=== PATIENT | female | born 1960 | race African-American/Black ===

== ENCOUNTER 2017-07-23 15:39 | Inpatient (IN) | payer OTHER, MEDICAID ==
[~2017-07-23] VITALS: Ht 175.3 cm; Wt 80.7 kg
[~2017-07-23 15:39] MED LIST: BENZ1TAB PO; CITA-70 PO; CLON0.3T41 PO; DIVA500E1 PO; FURO-571 PO; HYDR100T65 PO; LABE300T5 PO; NIFE60TE79 PO; RISP3TAB3 PO; SEVE800T6 PO; TRAZ-286 PO; [UNRECOGNIZED DRUG - CODE] PO
[2017-07-23 15:46] VITALS: BP 159/83
--- NOTE | 2017-07-23 15:46 | NUR ---
Patient to bed 12 by EMS at this time.
--- NOTE | 2017-07-23 15:59 | NUR ---
57 YO FEMALE BIB EMS FROM THE FIELD FOR FEELING TIRED AND HOT. PT REPORTS LOW BACK PAIN THAT IS CHRONIC X YEARS. FEELS 10/10 PAIN OVER HER ENTIRE BODY. DENIES N/V/D/FEVER/CHILLS. ABD SOFT, NON-TENDER. RR EVEN AND UNLABORED. LUNGS BILATERALLY CLEAR. PT BREATHING IS UNLABORED, BUT WHEN SHE BEGINS SPEAKING, SHE GETS VERY ENTHUSIASTIC AND THE EXERTION MAKES HER SOB. WHILE SPEAKING PT O2 SAT WENT TO MID 70%S, PT PLACED ON 3 L/MIN O2 VIA NC, AND O2 SAT WENT UP TO 99%. PT NOT IN ANY RESPIRATORY DISTRESS AT THIS TIME. ER MD SABILLON NOTIFIED. PT NEEDS MET. SAFETY PRECAUTIONS IN PLACE. WILL CONTINUE TO MONITOR.
[2017-07-23] MEDS ORDERED: LORazepam 2 MG/ML VIAL IM ONE ×2 (16:50→17:05)
[2017-07-23] MEDS ORDERED: diphenhydrAMINE 50 MG/ML VIAL IM ONE (16:50)
[2017-07-23] MEDS ORDERED: diphenhydrAMINE 50 MG/ML VIAL ONE (16:55)
[2017-07-23] MEDS ORDERED: LORazepam 2 MG/ML VIAL ONE (16:56)
--- NOTE | 2017-07-23 17:00 | NUR ---
ONLY 2 MG OF ATIVAN GIVEN AT THIS TIME. ER MD GONZALEZ NOTIFIED. TOLD TO OBSERVE AND DETERMINE IF 2 MORE MG NEEDED IN ADDITION. UNSURE IF DOCUMENTATION OF 2MG INSTEAD OF 4MG WAS CORRECT IN THE EMAR. WILL CONTINUE TO MONITOR.
--- NOTE | 2017-07-23 17:10 | NUR ---
PT REFUSING XRAY AT THIS TIME.
--- NOTE | 2017-07-23 17:25 | NUR ---
PT REFUSING CT SCAN AT THIS TIME. PT EDUCATED ON IMPORTANCE OF RECEIVING HER XRAY AND SCANS, BUT STILL DENIES. WILL RE-TRY AND CONTINUE TO MONITOR.
--- NOTE | 2017-07-23 17:31 | NUR ---
PT REFUSING IV INSERTION. PT REFUSING TO GIVE URINE. PT REFUSES ANY STRAIGHT CATHETERIZATION. PT EDUCATED ON IMPORTANCE OF DIAGNOSTIC TOOLS. WILL CONTINUE TO RE-TRY. WILL CONTIUE TO MONITOR. ER MD GONZALEZ NOTIFIED.
--- NOTE | 2017-07-23 17:42 | NUR ---
PT RESTING COMFORTABLY [facility] AT THIS TIME. PT STILL REFUSING ANY SCANS/PROCEDURES. ER MD NOTIFIED. WILL CONTINUE TO MONITOR.
--- NOTE | 2017-07-23 18:50 | NUR ---
pt still refusing all txs/procedures at this time. er md duenas notified. safety precautions remain in place. will continue to monitor.
--- NOTE | 2017-07-23 19:41 | NUR ---
REPORT RECEVIED FROM CORTEZ KURTZ
--- NOTE | 2017-07-23 19:41 | NUR ---
report given to JERARDO Tolbert and Andreea RN
--- NOTE | 2017-07-23 20:28 | NUR ---
PATIENT ASLEEP ON STRETCHER IN NO ACUTE DISTRESS AWAITING DISPO FROM ED PHYSICIAN. WILL CONTINUE TO MONITOR CLOSELY.
--- NOTE | 2017-07-23 22:20 | NUR ---
PATIENT FOUND DEFECATING ON FLOOR, REDIRECTED TO STRETCHER AND PHYSICIAN MADE AWARE.
--- NOTE | 2017-07-23 23:28 | NUR ---
Dr. Azevedo evaluating patient at bedside.
--- NOTE | 2017-07-23 23:34 | NUR ---
PT MOVED TO BED 1
--- NOTE | 2017-07-24 | NUR ---
PATIENT RESTING AT THIS TIME. NO SIGNS OF DISTRESS.
--- NOTE | 2017-07-24 00:02 | NUR ---
PATIENT REFUSING TO GIVE URINE AT THIS TIME. DR. PRESTON MADE AWARE.
[2017-07-24 00:09] LABS: BASOPHILS % (AUTO) 0.4 % (0.0-2.0); EOSINOPHILS # (AUTO) 0.3 K/uL (0-0.4); EOSINOPHILS % (AUTO) 3.2 % (0.0-4.0); LYMPHOCYTES # (AUTO) 1.7 K/uL (2.5-16.5); LYMPHOCYTES % (AUTO) 17.1 % (20.5-51.1); MONOCYTES # (AUTO) 0.7 K/uL (0.8-1.0); MONOCYTES % (AUTO) 6.8 % (1.7-9.3); NEUTROPHILS # (AUTO) 7.2 K/uL (1.8-7.7); NEUTROPHILS % (AUTO) 72.5 % (42.2-75.2); RED BLOOD CELL COUNT(AUTO) 2.99 MIL/uL (4.20-5.40)
[2017-07-24 00:21] LABS: HEMATOCRIT 24.8 % (36-48); HEMOGLOBIN 7.9 g/dL (12.0-16.0); MEAN CORPUSCULAR HEMOGLOBIN 26 pg (27-31); MEAN CORPUSCULAR HGB CONC 32 g/dL (33-37); MEAN CORPUSCULAR VOLUME 82.7 fL (80-94); PLATELET COUNT (AUTO) 188 K/uL (140-450); RED CELL DISTRIBUTION WIDTH 15.5 % (11.6-13.7)
[2017-07-24 00:26] LABS: ALBUMIN 3.2 g/dL (3.4-5.0); ANION GAP 17.3 (8-16); ASPARTATE AMINOTRANSFERASE 31 U/L (15-37); CARBON DIOXIDE 28.9 mmol/L (21-32); CHLORIDE 95 mmol/L (98-107); GFR ARICAN-AMERICAN 5 mL/min (>90); GLUCOSE 97 mg/dL (74-106); POTASSIUM 5.2 mmol/L (3.5-5.1); SODIUM SERUM 136 mmol/L (136-145); TOTAL BILIRUBIN 0.6 mg/dL (0.0-1.0)
--- NOTE | 2017-07-24 00:35 | NUR ---
PATIENT REFUSING STRAIGHT CATH
[2017-07-24 00:48] LABS: CREATININE 10.7 mg/dL (0.6-1.3); SALICYLATE < 2.8 mg/dL (2.8-20.0); UREA NITROGEN, BLOOD 94 mg/dL (7-18)
[2017-07-24 00:49] LABS: ACETAMINOPHEN < 0.5 ug/ml (10-30)
[2017-07-24 00:52] LABS: CKMB RELATIVE INDEX 1.7 (0.0-2.5)
--- NOTE | 2017-07-24 01:00 | NUR ---
PATIENT PLACED ON FULL MONITOR BUT CONTINUES TO RIP OFF LEADS AND PULSE OX. ATTEMPTED TO REPLACE X2. PROVIDER NOTIFIED.
[2017-07-24] MEDS ORDERED: LORazepam 1 MG TAB PO ONE (01:05)
--- NOTE | 2017-07-24 01:37 | NUR ---
Dr. Smith evaluating patient
[2017-07-24] MEDS ORDERED: NACL 0.9% 1,000 ML IV SCH (01:54)
[2017-07-24] MEDS ORDERED: ZOLPIDEM 5 MG TAB PO PRN (01:55)
[2017-07-24] MEDS ORDERED: DOCUSATE SODIUM 100 MG GELCAP PO PRN (01:55)
[2017-07-24] MEDS ORDERED: ACETAMINOPHEN 325 MG TAB PO PRN (01:55)
[2017-07-24] MEDS ORDERED: FUROSEMIDE 40 MG/4 ML VIAL IVP ONE ×2 (02:00→05:04)
--- NOTE | 2017-07-24 02:03 | NUR ---
ATTEMPTED IV TIMES 3, PATIENT YANKED AWAY EACH TIME TRYING TO HIT RN'S. PROVIDER MADE AWARE.
[2017-07-24] MEDS ORDERED: HALOPERIDOL IM 5 MG/ML VIAL IM ONE (02:05)
[2017-07-24] MEDS ORDERED: hydrALAZINE 20 MG/ML VIAL IM ONE (02:05)
[2017-07-24] MEDS ORDERED: diphenhydrAMINE 50 MG/ML VIAL IM ONE (02:05)
--- NOTE | 2017-07-24 02:15 | NUR ---
EKG NOT FOUND IN PT CHART OR CARDIOSERVER. DR. PRESTON ORDERED REPEAT.
[2017-07-24 02:18] LABS: PROTHROMBIN TIME 11.8 secs (10.8-13.4)
--- NOTE | 2017-07-24 02:30 | NUR ---
AWAITING PT TO BECOME CALM FOR REPEAT EKG, IV INSERTION. ICU MADE AWARE.
[2017-07-24 02:40] LABS: FREE T4 (FREE THYROXINE) 1.04 ng/dL (0.76-1.46); MAGNESIUM 2.2 mg/dL (1.8-2.4); PHOSPHORUS 7.6 mg/dL (2.5-4.9); THYROID STIMULATING HORMONE 0.86 uIU/mL (0.34-3.74)
[2017-07-24] MEDS ORDERED: HEPARIN PER PHARMACY MC PRN (03:05)
[2017-07-24] MEDS ORDERED: hePARIN / DEXT 5% PREMIX 250 ML IV SCH ×2 (03:05→04:00)
--- NOTE | 2017-07-24 03:35 | NUR ---
Patient will be admitted to care of [facility]. Admited to ICU FOR TELE CONVENIENCE. Will go to roo[facility] ICU 3. Belongings list completed. Report to ALISA KURTZ.
--- NOTE | 2017-07-24 03:40 | NUR ---
PT ARRIVED IN THE UNIT AT 0330. PT DROWSY. ORIENTED TO NAME. PT TALKS BUT GARBLED. PERRL. LUNG SOUNDS CLEAR. PT IN ROOM AIR BUT PUT ON 2L OXYGEN VIA NC DUE TO DESATURATING. S1+S2 HEARD. SR ON MONITOR. PULSES PALPABLE. PT HAS LEFT ARM FISTULA. ABDOMEN ROUND, SOFT AND NONDISTENDED. NO URINE OUTPUT AT THIS TIME. PT UNCOOPERATIVE TOWARDS STAFF. REFUSES FOR LINENS TO BE CHANGED AND REMOVED. PT HAS RIGHT EJ PERIPHERAL IV ACCESS THAT IS PATENT AND ASYMPTOMATIC. ALL SAFETY PRECAUTIONS ARE IN PLACE. BED AT LOW POSSIBLE POSITION. WILL CONTINUE TO MONITOR PT.
[2017-07-24 04:00] VITALS: BP 205/125
--- NOTE | 2017-07-24 04:31 | NUR ---
PT REFUSES FOR LEADS TO BE FIXED. CURRENTLY SHOWS NO RHYTHM ON MONITOR. PT EDUCATED AND STILL REFUSES. GETTING AGGRESSIVE TOWARDS NURSES.
--- NOTE | 2017-07-24 04:42 | NUR ---
CALLED DR. FERRIS TO CLARIFY HEPARIN BOLUS ORDER. ACCORDING TO HIM JUST GIVE PT 4,000 UNITS BOLUS.
--- NOTE | 2017-07-24 04:50 | NUR ---
PT REFUSING TO HAVE IV HEPARIN OR ANY IV FLUIDS TO BE STARTED. DR FERRIS NOTIFIED REGARDING THIS.
--- NOTE | 2017-07-24 04:55 | NUR ---
INFORMED DR. FERRIS REGARDING ELEVATED BP. WILL FOLLOW UP WITH ANY NEW ORDERS.
[2017-07-24] MEDS ORDERED: hydrALAZINE 20 MG/ML VIAL IVP SCH (06:00)
--- NOTE | 2017-07-24 06:00 | NUR ---
PT STARTED ON HEPARIN DRIP PER ORDER. DR GIMENEZ AT BEDSIDE AND INFORMED REGARDING PTT ORDER.
--- NOTE | 2017-07-24 07:18 | NUR ---
REPORT GIVEN TO MORNING RN FOR CONTINUITY OF CARE. INFORMED RN REGARDING PT'S DENTURES. PT IN STABLE CONDITION AT THIS TIME.
--- NOTE | 2017-07-24 07:19 | NUR ---
RECEIVED REPORT FROM NUCLEAR MEDICINE SUPERVISOR RN AT BEDSIDE, PT IS AAOX2, AGITATED, ABLE FOLLOW COMMANDS AND MAKE NEEDS KNOWN. SOBOE NOTED, RHONCHI LUNG SOUNDS, ON O2 AT 2L VIA NC, O2 SAT 93%, DENIES CHEST PAIN, SR ON BUFFING WHEEL FORMER AUTOMATIC, SOFT ABDOMEN WITH ACTIVE BOWEL SOUNDS, OH HD ON TTS, AV SHUNT TO LEFT FOREARM, CONTINENT WITH B&B'S, GENERALIZED WEAKNESS NOTED, RIGHT FOOT +2 PITTING EDEMA NOTED, SKIN IS INTACT, WARM AND DRY TO TOUCH, IV TO RIGHT ET 18GA, RUNNING HEPARIN DRIP AT 800 UNITS/HR. DENIES PAIN, ELEVATED BP NOTED, HOB ELEVATED, SAFETY MEASURE IN PLACE, WILL CONTINUE TO MONITOR.
--- NOTE | 2017-07-24 07:50 | NUR ---
TRANSFERRED PT TO ROOM 119B VIA GURNEY, REPORT GIVEN TO MICHELLE RN AT BEDSIDE FOR CONTINUE OF CARE, PT IS IN STABLE CONDITION AT THIS TIME.
--- NOTE | 2017-07-24 07:50 | NUR ---
PT ARRIVED IN THE UNIT FROM ICU. PT IS AWAKE, BUT A LITTLE DROWSY. LUNG SOUNDS CLEAR. PT ON 2L OXYGEN VIA NC. PLACED PT ON TELE MONITOR. PT HAS LEFT ARM AV FISTULA. THRMARJ AND BRUJAYE PRESENTED. IV CATH TO THE RIGHT EJ, PATENT AND ASYMPTOMATIC. ALL SAFETY PRECAUTIONS ARE IN PLACE. BED AT LOW POSSIBLE POSITION. WILL CONTINUE TO MONITOR PT. Addendum: 07/24/17 at 1902 by Sina Dowling RN CALL LIGHT WITHIN REACH.
[2017-07-24 08:00] VITALS: BP 208/115
[2017-07-24] MEDS ORDERED: cloNIDine 0.1 MG TAB PO SCH (08:35)
[2017-07-24] MEDS: NACL 0.9% 250 ML IV SCH (08:41)
[2017-07-24] MEDS: SEVELAMER CARBONATE 800 MG TAB PO SCH ×3 (08:50→18:04)
[2017-07-24] MEDS: risperiDONE 1 MG TAB PO SCH (08:50)
[2017-07-24] MEDS: LABETALOL 100 MG TAB PO SCH ×2 (08:51→20:47)
[2017-07-24] MEDS: DIVALPROEX 500 MG TABEC PO SCH ×2 (08:52→20:49)
[2017-07-24] MEDS: NIFEdipine 60 MG TABER PO SCH ×2 (08:52→20:49)
[2017-07-24] MEDS: MINOXIDIL 2.5 MG TAB PO SCH (08:52)
[2017-07-24] MEDS: hydrALAZINE 25 MG TAB PO SCH ×5 (08:52→18:04)
[2017-07-24] MEDS: BENZTROPINE 1 MG TAB PO SCH (08:53)
[2017-07-24] MEDS: CITALOPRAM 20 MG TAB PO SCH (08:53)
[2017-07-24] MEDS: cloNIDine 0.1 MG TAB PO SCH ×2 (09:00→20:48)
[2017-07-24] MEDS: FUROSEMIDE 40 MG/4 ML VIAL IVP SCH ×3 (09:03→18:04)
--- NOTE | 2017-07-24 09:20 | NUR ---
PT IS DROWSY, NOT SWALLOWING ANY MORE MEDICATION.
[2017-07-24 10:15] VITALS: BP 156/82
--- NOTE | 2017-07-24 10:18 | NUR ---
BP 156/82, HR 78
--- NOTE | 2017-07-24 10:27 | NUR ---
PATIENT HAS BEEN SCREENED AND CATEGORIZED MODERATE NUTRITION RISK. PATIENT WILL BE SEEN WITHIN 3-5 DAYS OF ADMISSION. 07/26/17 07/28/[address]
[2017-07-24 12:00] VITALS: BP 157/87
[2017-07-24 12:38] LABS: BASOPHILS % (AUTO) 0.6 % (0.0-2.0); EOSINOPHILS # (AUTO) 0.3 K/uL (0-0.4); EOSINOPHILS % (AUTO) 3.3 % (0.0-4.0); HEMATOCRIT 22.1 % (36-48); HEMOGLOBIN 7.1 g/dL (12.0-16.0); LYMPHOCYTES # (AUTO) 1.7 K/uL (2.5-16.5); LYMPHOCYTES % (AUTO) 19.8 % (20.5-51.1); MEAN CORPUSCULAR HEMOGLOBIN 26 pg (27-31); MEAN CORPUSCULAR HGB CONC 32 g/dL (33-37); MEAN CORPUSCULAR VOLUME 82.3 fL (80-94); MONOCYTES # (AUTO) 0.7 K/uL (0.8-1.0); NEUTROPHILS # (AUTO) 5.7 K/uL (1.8-7.7); NEUTROPHILS % (AUTO) 68.3 % (42.2-75.2); PLATELET COUNT (AUTO) 154 K/uL (140-450); RED BLOOD CELL COUNT(AUTO) 2.69 MIL/uL (4.20-5.40); RED CELL DISTRIBUTION WIDTH 15.2 % (11.6-13.7); WHITE BLOOD COUNT (AUTO) 8.3 K/uL (4.8-10.8)
[2017-07-24 13:19] LABS: ANION GAP 17.8 (8-16); CARBON DIOXIDE 27.9 mmol/L (21-32); POTASSIUM 5.7 mmol/L (3.5-5.1)
[2017-07-24 13:23] LABS: CREATININE 11.2 mg/dL (0.6-1.3)
[2017-07-24 13:24] LABS: MAGNESIUM 2.2 mg/dL (1.8-2.4); PHOSPHORUS 7.9 mg/dL (2.5-4.9)
--- NOTE | 2017-07-24 13:30 | NUR ---
PT REFUSED KIRBY CATH INSERT, WILL TRY AGAIN LATER. PT AGREED TO X RAY CHEST. NOTIFIED RADIOLOGY DEPT.
--- NOTE | 2017-07-24 13:45 | NUR ---
PT REFUSING KIRBY CATH, MADE PT AWARE OF THE RISK AND BENEFITS, PT STILL REFUSING. NOTIFIED DR WELLINGTON WHO SAID MIGHT ORDER US.
--- NOTE | 2017-07-24 13:47 | NUR ---
NOTIFIED DIALYSIS NURSE AFIA, WHO CALLED NUSRAT ABOUT THE DR CRAVEN'S ORDER FOR HEMODIALYSIS TODAY,
[2017-07-24] MEDS: FERROUS GLUCONATE 324 MG TAB PO SCH (13:50)
--- NOTE | 2017-07-24 14:25 | NUR ---
DIALYSIS NURSE NUSRAT IS HERE, WILL START DIALYSIS FOR PT.
[2017-07-24 16:00] VITALS: BP 142/79
--- NOTE | 2017-07-24 18:00 | NUR ---
DIALYSIS DONE, 3L REMOVED. VITALS STABLE. PT STARTED EATING DINNER.
--- NOTE | 2017-07-24 18:30 | NUR ---
PT STILL REFUSING KIRBY CATH. PT STATED SHE STILL PRODUCE URINE. PROVIDED URINE HAT, BED GARDNER, BEDSIDE COMMODE.
--- NOTE | 2017-07-24 19:30 | NUR ---
ASSUMED CARE OF PATIENT, NO COMPLAINS. SLEEPING EASILY AROUSABLE. CALL LIGHT WITHIN REACH.
--- NOTE | 2017-07-24 19:30 | NUR ---
REPORT GIVEN TO CONSULTING SERVICES ASSOCIATE RN AT BEDSIDE FOR CONTINUE OF CARE, PT IS IN STABLE CONDITION AT THIS TIME.
--- NOTE | 2017-07-24 20:00 | NUR ---
VITAL SIGNS STABLE. NO COMPLAINS. AFEBRILE. PLAN OF CARE DISCUSSED WITH PATIENT, NEEDS REINFORCEMENT. CALL LIGHT WITHIN REACH.
[2017-07-24 20:42] LABS: ANION GAP 11.4 (8-16); CARBON DIOXIDE 32.2 mmol/L (21-32); POTASSIUM 3.6 mmol/L (3.5-5.1)
[2017-07-24] MEDS: traZODone 50 MG TAB PO SCH ×2 (20:48→20:49)
--- NOTE | 2017-07-24 21:00 | NUR ---
DUE MEDS GIVEN. SNACK GIVEN PER REQUEST. CALL LIGHT WITHIN REACH.
[2017-07-24 21:18] VITALS: BP 122/59
[2017-07-24 21:26] LABS: CREATININE 6.1 mg/dL (0.6-1.3)
--- NOTE | 2017-07-24 23:38 | NUR ---
ENDORSED CARE AT BEDSIDE WITH RAUL KURTZ, PATIENT IN STABLE CONDITION.
--- NOTE | 2017-07-24 23:42 | NUR ---
RECEIVED REPORT FROM RN. PT RESTING IN BED. AAOX4. NO S/S OF ACUTE DISTRESS. PT DENIES PAIN. IV SITE PATENT AND INTACT. CALL LIGHT WITHIN REACH. SAFETY MEASURES ENSURED. WILL CONTINUE TO MONITOR.
[2017-07-25] VITALS (7 sets, daily range): BP systolic 125–153; BP diastolic 67–87
--- NOTE | 2017-07-25 05:48 | NUR ---
PT SLEEPING IN BED. NO S/S OF ACUTE DISTRESS. WILL CONTINUE TO MONITOR.
[2017-07-25 06:20] LABS: T4 (THYROXINE) 6.7 ug/dL (4.5-12.0)
[2017-07-25 06:33] LABS: BASOPHILS % (AUTO) 0.5 % (0.0-2.0); EOSINOPHILS # (AUTO) 0.2 K/uL (0-0.4); EOSINOPHILS % (AUTO) 3.5 % (0.0-4.0); LYMPHOCYTES # (AUTO) 1.3 K/uL (2.5-16.5); LYMPHOCYTES % (AUTO) 19.7 % (20.5-51.1); MEAN CORPUSCULAR HEMOGLOBIN 27 pg (27-31); MEAN CORPUSCULAR HGB CONC 32 g/dL (33-37); MEAN CORPUSCULAR VOLUME 82.5 fL (80-94); MONOCYTES # (AUTO) 0.7 K/uL (0.8-1.0); MONOCYTES % (AUTO) 10.6 % (1.7-9.3); NEUTROPHILS # (AUTO) 4.3 K/uL (1.8-7.7); NEUTROPHILS % (AUTO) 65.7 % (42.2-75.2); PLATELET COUNT (AUTO) 147 K/uL (140-450); RED BLOOD CELL COUNT(AUTO) 2.52 MIL/uL (4.20-5.40); RED CELL DISTRIBUTION WIDTH 15.4 % (11.6-13.7); WHITE BLOOD COUNT (AUTO) 6.5 K/uL (4.8-10.8)
[2017-07-25 06:46] LABS: ANION GAP 13.8 (8-16); CARBON DIOXIDE 29.6 mmol/L (21-32); POTASSIUM 4.4 mmol/L (3.5-5.1)
[2017-07-25 06:50] LABS: PHOSPHORUS 5.8 mg/dL (2.5-4.9)
--- NOTE | 2017-07-25 07:29 | NUR ---
ENDORSED PLAN OF CARE TO RN. PT REMAINS STABLE.
--- NOTE | 2017-07-25 07:30 | NUR ---
RECEIVED REPORT FROM HOME APPLIANCE WASHING MACHINE MECHANIC RN. PT IS AWAKE, ALERT, OX3. PT ON 2L O2 VIA NC. PT ON TELE MONITOR. PT HAS LEFT ARM AV FISTULA. THRILL AND BRUIT PRESENTED. IV CATH NOTED TO THE RIGHT EJ. ALL SAFETY PRECAUTIONS ARE IN PLACE. BED AT LOWEST POSITION. WILL CONTINUE TO MONITOR PT.
[2017-07-25 07:32] LABS: HEMATOCRIT 20.8 % (36-48); HEMOGLOBIN 6.7 g/dL (12.0-16.0)
[2017-07-25 07:33] LABS: CREATININE 7.1 mg/dL (0.6-1.3)
--- NOTE | 2017-07-25 08:28 | NUR ---
PT REFUSED BLOOD TRANSFUSION CONSENT, PT STATED IT'S AGAINST HER BELIEF OF GOD.
[2017-07-25] MEDS: NACL 0.9% 250 ML IV SCH (08:41)
[2017-07-25] MEDS: cloNIDine 0.1 MG TAB PO SCH ×2 (09:00→20:47)
[2017-07-25] MEDS: NIFEdipine 60 MG TABER PO SCH ×2 (09:00→20:46)
[2017-07-25] MEDS: hydrALAZINE 25 MG TAB PO SCH ×3 (09:00→17:44)
[2017-07-25] MEDS: LABETALOL 100 MG TAB PO SCH ×2 (09:00→20:47)
--- NOTE | 2017-07-25 09:05 | NUR ---
SPOKE WITH DR WELLINGTON, TO HOLD NIFEDIPINE ER, LABETALOL, HYDRALAZINE, CLONIDINE.
[2017-07-25] MEDS: FERROUS GLUCONATE 324 MG TAB PO SCH (09:08)
[2017-07-25] MEDS: risperiDONE 1 MG TAB PO SCH (09:09)
[2017-07-25] MEDS: FUROSEMIDE 40 MG/4 ML VIAL IVP SCH (09:10)
[2017-07-25] MEDS: CITALOPRAM 20 MG TAB PO SCH (09:10)
[2017-07-25] MEDS: DIVALPROEX 500 MG TABEC PO SCH ×2 (09:10→20:46)
[2017-07-25] MEDS: MINOXIDIL 2.5 MG TAB PO SCH (09:11)
[2017-07-25] MEDS: SEVELAMER CARBONATE 800 MG TAB PO SCH ×3 (09:11→17:44)
[2017-07-25] MEDS: BENZTROPINE 1 MG TAB PO SCH (09:12)
--- NOTE | 2017-07-25 10:00 | NUR ---
PT'S EJ IS LEAKING, PT REFUSED NEW IV INSERT.
--- NOTE | 2017-07-25 10:13 | NUR ---
PT REFUSED ECHO. DR. WELLINGTON NOTIFIED.
[2017-07-25] MEDS: HYDROcodone/APAP 7.5/325 MG 1 TAB PO PRN (11:12)
[2017-07-25] MEDS ORDERED: EPOETIN ALFA 10,000 UNITS/ML VIAL SUBQ SCH (11:35)
--- NOTE | 2017-07-25 11:50 | NUR ---
DR CRAVEN SEEN THE PT. SAID WILL GET DIALYSIS FOR HER TOMORROW.
--- NOTE | 2017-07-25 19:15 | NUR ---
REPORT GIVEN TO ROLLER LEVELER OPERATOR RN AT BEDSIDE FOR CONTINUE OF CARE, PT IS IN STABLE CONDITION AT THIS TIME.
--- NOTE | 2017-07-25 19:17 | NUR ---
RECEIVED REPORT FROM RN. PT RESTING IN BED. AAOX4. NO S/S OF ACUTE DISTRESS. PT HAS NO IV. PT REFUSES IV AT THIS TIME STATING MAYBE LATER. ON O2 2L NC. PT DENIES PAIN. CALL LIGHT WITHIN REACH. SAFETY MEASURES ENSURED. WILL CONTINUE TO MONITOR.
[2017-07-25] MEDS: traZODone 50 MG TAB PO SCH (20:46)
--- NOTE | 2017-07-25 23:59 | NUR ---
PT SLEEPING IN BED. NO S/S OF ACUTE DISTRESS. CALL LIGHT WITHIN REACH. SAFETY MEASURES ENSURED. WILL CONTINUE TO MONITOR.
[2017-07-26 04:00] VITALS: BP 125/80
--- NOTE | 2017-07-26 04:20 | NUR ---
PT SLEEPING IN BED. NO S/S OF ACUTE DISTRESS. PT REFUSES IV AT THIS TIME. WILL CONTINUE TO MONITOR.
[2017-07-26 06:25] LABS: BASOPHILS % (AUTO) 0.4 % (0.0-2.0); EOSINOPHILS # (AUTO) 0.3 K/uL (0-0.4); EOSINOPHILS % (AUTO) 4.7 % (0.0-4.0); LYMPHOCYTES # (AUTO) 1.2 K/uL (2.5-16.5); LYMPHOCYTES % (AUTO) 20.1 % (20.5-51.1); MEAN CORPUSCULAR HEMOGLOBIN 26 pg (27-31); MEAN CORPUSCULAR HGB CONC 31 g/dL (33-37); MEAN CORPUSCULAR VOLUME 84.3 fL (80-94); MONOCYTES # (AUTO) 0.6 K/uL (0.8-1.0); MONOCYTES % (AUTO) 10.4 % (1.7-9.3); NEUTROPHILS # (AUTO) 3.9 K/uL (1.8-7.7); NEUTROPHILS % (AUTO) 64.4 % (42.2-75.2); PLATELET COUNT (AUTO) 134 K/uL (140-450); RED BLOOD CELL COUNT(AUTO) 2.42 MIL/uL (4.20-5.40); RED CELL DISTRIBUTION WIDTH 15.7 % (11.6-13.7); WHITE BLOOD COUNT (AUTO) 6.1 K/uL (4.8-10.8)
[2017-07-26 06:56] LABS: ANION GAP 14.7 (8-16); CARBON DIOXIDE 29.3 mmol/L (21-32)
[2017-07-26 06:58] LABS: MAGNESIUM 1.9 mg/dL (1.8-2.4); PHOSPHORUS 5.8 mg/dL (2.5-4.9)
[2017-07-26 07:02] LABS: HEMATOCRIT 20.4 % (36-48); HEMOGLOBIN 6.4 g/dL (12.0-16.0)
[2017-07-26 07:18] LABS: CREATININE 8.2 mg/dL (0.6-1.3)
--- NOTE | 2017-07-26 07:20 | NUR ---
RECEIVED REPORT FROM FINANCIAL SERVICE PROFESSIONAL NURSE AT BEDSIDE. PT WAS SLEEPING SOUNDLY. DIFFICULT TO AROUSE. WILL BE BACK TO ASSESS PT. UPDATED BOARD.
[2017-07-26 08:00] VITALS: BP 163/87
--- NOTE | 2017-07-26 08:17 | NUR ---
PT IS AWAKE, SITTING UP AND EATING BREAKFAST. MAINSPRING STRIP GAUGER IS HERE TO START DIALYSIS. WILL CONTINUE TO MONITOR PT.
[2017-07-26] MEDS: NACL 0.9% 250 ML IV SCH (08:41)
--- NOTE | 2017-07-26 08:43 | NUR ---
PT REFUSED DIALYSIS AT THIS TIME. PT IS HERE. WILL ATTEMPT TO WORK WITH PT. REFUSED VS. WILL CONTINUE TO MONITOR TO PT.
[2017-07-26] MEDS: hydrALAZINE 25 MG TAB PO SCH ×3 (09:00→17:04)
[2017-07-26] MEDS: NIFEdipine 60 MG TABER PO SCH ×2 (09:00→20:52)
[2017-07-26] MEDS: LABETALOL 100 MG TAB PO SCH ×2 (09:00→20:52)
[2017-07-26] MEDS: cloNIDine 0.1 MG TAB PO SCH (09:00)
[2017-07-26] MEDS: MINOXIDIL 2.5 MG TAB PO SCH (09:00)
[2017-07-26] MEDS: SEVELAMER CARBONATE 800 MG TAB PO SCH ×3 (09:07→17:03)
[2017-07-26] MEDS: risperiDONE 1 MG TAB PO SCH (09:07)
[2017-07-26] MEDS: DIVALPROEX 500 MG TABEC PO SCH ×2 (09:07→20:51)
[2017-07-26] MEDS: BENZTROPINE 1 MG TAB PO SCH (09:08)
[2017-07-26] MEDS: FERROUS GLUCONATE 324 MG TAB PO SCH (09:08)
[2017-07-26] MEDS: CITALOPRAM 20 MG TAB PO SCH (09:08)
[2017-07-26] MEDS: HYDROcodone/APAP 7.5/325 MG 1 TAB PO PRN (09:09)
--- NOTE | 2017-07-26 09:33 | NUR ---
ADMINISTERED MORNING MEDS. PT TOLERATED WELL. HELD ALL BLOOD PRESSURE MEDS D/T PT RECEIVING DIALYSIS LATER THIS MORNING. WILL CONTINUE TO MONITOR.
--- NOTE | 2017-07-26 10:53 | NUR ---
PT IS OUT OF BED SITTING IN CHAIR COMFORTABLY. REMINDED PT WHEN READY TO GET BACK INTO BED TO PRESS HER CALL LIGHT FOR ASSISTANCE.
--- NOTE | 2017-07-26 11:52 | NUR ---
DR WILDER, METAL POURER, DISCUSSED WITH PT ANEMIA AND NEED FOR BLOOD TRANSFUSION. PT STATED SHE WOULD PRAY ABOUT IT.
[2017-07-26] MEDS ORDERED: SODIUM FERRIC GLUCONATE 125 MG in NACL 0.9% 100 ML IV SCH (12:00)
[2017-07-26] MEDS ORDERED: EPOETIN ALFA 10,000 UNITS/ML VIAL IV SCH (12:00)
--- NOTE | 2017-07-26 12:15 | NUR ---
IZA FROM LAB CAME TO DRAW THE IRON PANEL PER DR. CRAVEN'S REQUEST. PT REFUSED. DID NOT WANT TO BE DRAWN.
[2017-07-26] MEDS ORDERED: LACTULOSE 20 GM/30 ML UDC PO SCH (13:00)
--- NOTE | 2017-07-26 13:25 | NUR ---
PRESCRIPTIONIST AT BEDSIDE, STARTING THE HD. PT IS COOPERATIVE SO FAR. LAB IS HERE WITH TUBES. FILLED AND SENT TO THE LAB FOR PROCESSING. WE WILL AWAIT THE TYPE AND SCREENING AND THE BLOOD BANK FOR THE BLOOD. WILL CONTINUE TO MONITOR PT.
--- NOTE | 2017-07-26 14:15 | NUR ---
PHYSICAL THERAPY CO-SIGN The Physical Therapy Progress Notes documented by Technical Lead have been reviewed. Reviewed/Co-Signed by: Ness Cervantes PT Documentation Done by: Brice Her AUTO REBUILDER Pt's HGB at 6.4 but continues to refuse transfusion per MD patient closely monitored during treatment with no adverse effect, tolerating treatment well. Addendum: 07/26/17 at 1418 by Ness Cervantes PT Amended: Links added.
--- NOTE | 2017-07-26 15:22 | NUR ---
SPOKE TO MICKEY, DOUBLE SPINDLE SHAPER OPERATOR, NOTIFIED HER OF THE PT WANTING TO SPEAK WITH HER REGARDING A WHEELCHAIR REPLACEMENT.
--- NOTE | 2017-07-26 15:34 | NUR ---
BLOOD TRANSFUSION OF 1 UNIT STARTED ALONG WITH DIALYSIS. DIALYSIS NURSE WILL ADMINISTER. WILL CONTINUE TO MONITOR PT.
[2017-07-26 16:00] VITALS: BP 145/65
--- NOTE | 2017-07-26 16:34 | NUR ---
DIALYSIS COMPLETED. BLOOD TRANSFUSION COMPLETED. VS WITHIN NORMAL LIMITS. PT IS SLEEPING SOUNDLY. WILL CONTINUE TO MONITOR PT.
--- NOTE | 2017-07-26 17:07 | NUR ---
ADMINISTERED SCHEDULED MEDICATIONS, INCLUDING THE PROCRIT. PT TOLERATED WELL. WILL CONTINUE TO MONITOR PT.
--- NOTE | 2017-07-26 19:27 | NUR ---
ENDORSED PT TO VETERINARY SURGERY TECHNICIAN NURSE AT BEDSIDE. PT IN STABLE CONDITION.
--- NOTE | 2017-07-26 19:30 | NUR ---
RECEIVED PT IN STABLE CONDITION FROM AM NURSE. AWAKE,ALERT AND ORIENTED X4. SITTING IN BED WITH NO C/O ANY DISCOMFORT NOR PAIN NOTED. PT HAS NO IV ACCESS FOR AM NURSE SAID PT REFUSED. HAD HD ACCESS ON THE LT LOWER ARM AV SHUNT , WITH DRESSING CLEAN AND DRY. PT IS ANURIC. BED ON LOW POSITION. FREQUENT ROUNDS NEEDED. CALL LIGHT AND BSC PLACED WITHIN EASY REACH. INSTRUCTED TO CALL FOR ANY ASSISTANCE. WILL CONTINUE TO MONITOR.
--- NOTE | 2017-07-26 19:50 | NUR ---
PT REFUSED AGAIN BLOOD DRAW . WILL TRY AGAIN IN AM.
[2017-07-26 20:48] VITALS: BP 186/92
[2017-07-26] MEDS: traZODone 50 MG TAB PO SCH (20:51)
--- NOTE | 2017-07-26 21:30 | NUR ---
PT SLEEPING . NO S/S OF ANY DISCOMFORT NOR PAIN NOTED.
--- NOTE | 2017-07-26 22:30 | NUR ---
PT SLEEPING . NO S/S OF [place] DISCOMFORT NOR PAIN NOTED.
[2017-07-27 00:09] VITALS: BP 180/86
[2017-07-27] MEDS: cloNIDine 0.1 MG TAB PO SCH ×2 (00:17→09:01)
[2017-07-27 01:47] VITALS: BP 148/80
--- NOTE | 2017-07-27 01:47 | NUR ---
BLOOD PRESSURE @0017 WAS 180/86. NO C/O ANY DISCOMFORT NOTED. CLONIDINE 0.3 MG PO GIVEN . LATEST BP RECHECKED RESULT 148/80 HR-77. PT IN STABLE CONDITION. WILL CONTINUE TO MONITOR.
--- NOTE | 2017-07-27 03:00 | NUR ---
MADE ROUNDS. PT IS ASLEEP. NO DISTRESS NOR PAIN NOTED.
--- NOTE | 2017-07-27 05:00 | NUR ---
MADE ROUNDS.PT ASLEEP. NO DISTRESS NOR DISCOMFORT NOTED. WILL CONTINUE TO MONITOR.
[2017-07-27 05:15] VITALS: BP 146/63
--- NOTE | 2017-07-27 05:50 | NUR ---
BLOOD FINALLY DRAWN FOR THIS AM. WILL FOLLOW UP RESULTS.
[2017-07-27 06:57] LABS: BASOPHILS # (AUTO) 0.1 K/uL (0.00-0.22); BASOPHILS % (AUTO) 0.9 % (0.0-2.0); EOSINOPHILS # (AUTO) 0.3 K/uL (0-0.4); EOSINOPHILS % (AUTO) 4.4 % (0.0-4.0); HEMATOCRIT 23.1 % (36-48); HEMOGLOBIN 7.4 g/dL (12.0-16.0); LYMPHOCYTES # (AUTO) 0.9 K/uL (2.5-16.5); LYMPHOCYTES % (AUTO) 15.1 % (20.5-51.1); MEAN CORPUSCULAR HEMOGLOBIN 28 pg (27-31); MEAN CORPUSCULAR HGB CONC 32 g/dL (33-37); MEAN CORPUSCULAR VOLUME 85.6 fL (80-94); MONOCYTES # (AUTO) 0.6 K/uL (0.8-1.0); MONOCYTES % (AUTO) 10.5 % (1.7-9.3); NEUTROPHILS # (AUTO) 4.2 K/uL (1.8-7.7); NEUTROPHILS % (AUTO) 69.1 % (42.2-75.2); PLATELET COUNT (AUTO) 129 K/uL (140-450); RED CELL DISTRIBUTION WIDTH 15.2 % (11.6-13.7); WHITE BLOOD COUNT (AUTO) 6.1 K/uL (4.8-10.8)
--- NOTE | 2017-07-27 07:13 | NUR ---
ENDORSED PT IN STABLE CONDITION TO AM NURSE FOR CONTINUITY OF CARE.
[2017-07-27 07:21] LABS: ANION GAP 14.2 (8-16); CARBON DIOXIDE 28.2 mmol/L (21-32); POTASSIUM 4.4 mmol/L (3.5-5.1)
[2017-07-27 07:28] LABS: CREATININE 5.3 mg/dL (0.6-1.3)
[2017-07-27 07:38] LABS: MAGNESIUM 1.8 mg/dL (1.8-2.4); PHOSPHORUS 4.1 mg/dL (2.5-4.9)
[2017-07-27 08:00] VITALS: BP 142/72
--- NOTE | 2017-07-27 08:10 | NUR ---
PATIENT WAS SLEEPING COMFORTABLY, EASILY AROUSABLE BY NAME. RESPIRATION EVEN, UNLABOR ON 2L NC. SKIN DRY AND WARM. LUNGS SOUND CLEAR THROUGHOUT, BOWEL SOUND ACTIVE 4 QUADRANTS. DENIED PAIN, SOB AT THIS TIME. CONTINUED TO REFUSE IV INSERTION. PLAN OF CARE WAS DISCUSSED WITH PATIENT. BED AT LOW POSITION, SIDE RAILS UP. CALL LIGHT WITHIN REACH Addendum: 07/27/17 at 1440 by Eusebia Morgan RN AV SHUNT ON LEFT ARM WITH THRILL AND BRUIT PRESENT.
[2017-07-27] MEDS: NACL 0.9% 250 ML IV SCH (08:41)
[2017-07-27] MEDS: MINOXIDIL 2.5 MG TAB PO SCH (08:59)
[2017-07-27] MEDS: risperiDONE 1 MG TAB PO SCH (08:59)
[2017-07-27] MEDS ORDERED: EPOETIN ALFA 10,000 UNITS/ML VIAL SUBQ SCH ×2 (09:00→12:00)
[2017-07-27] MEDS: hydrALAZINE 25 MG TAB PO SCH ×2 (09:00→12:24)
[2017-07-27] MEDS: SEVELAMER CARBONATE 800 MG TAB PO SCH ×2 (09:00→12:24)
[2017-07-27] MEDS ORDERED: EPOETIN ALFA 10,000 UNITS/ML VIAL IV SCH (09:00)
[2017-07-27] MEDS: LABETALOL 100 MG TAB PO SCH (09:00)
[2017-07-27] MEDS: NIFEdipine 60 MG TABER PO SCH (09:01)
[2017-07-27] MEDS: CITALOPRAM 20 MG TAB PO SCH (09:01)
[2017-07-27] MEDS: DIVALPROEX 500 MG TABEC PO SCH (09:02)
[2017-07-27] MEDS: BENZTROPINE 1 MG TAB PO SCH (09:02)
--- NOTE | 2017-07-27 10:00 | NUR ---
Social Service Notes: I Faxed [facility] at , Patient's Inquiry and MD order for short term-placement for physical Therapy. I call and contact Eveilna at to make her aware of inquiry, she agreed and will follow up with updates with these proposal writer.
--- NOTE | 2017-07-27 10:15 | NUR ---
Social Service Notes: I Faxed [facility] ([facility])at ([phone], Patient's Inquiry and MD order for short term-placement for physical Therapy. I call and contact Malini at to make her aware of inquiry, she agreed and will follow up with updates with these freelance copywriter
--- NOTE | 2017-07-27 10:30 | NUR ---
Social Service Notes: Ron from [facility] , call me back about Patient's Inquiry for short term-placement for physical Therapy; Per Ron unfortunately their facility is unable to accept patient at this time due to not having any beds available at this time. I thanked Ron and ended call.
--- NOTE | 2017-07-27 10:51 | NUR ---
PT NOTES CHART REVIEWED AND CLEARED FOR PT BY RN. PATIENT SITTING AT [facility]OB RESTING EATING BREAKFAST, BUT ASKED IF POSSIBLE TO RETURN LATER. NO OTHER NEEDS AT THIS TIME. RETURNED AGAIN TO PATIENTS ROOM TO ATTEMPT THERAPY, CONTINUES TO BE SITTING UP AT E[facility], BUT DECLINES PARTICIPATION IN THERAPY DESPITE EDUCATING AND MOTIVATING. NO COMPLAINTS FROM PATIENT BUT EXPRESSING FEELING DROWSY. TRAY AND CALL LIGHT IN REACH. PATIENT PREFERS TO CONTINUE SITTING UP AT EOB. CALL LIGHT IN REACH. RN AWARE. WILL FOLLOW UP PATIENT TOMORROW IF POSSIBLE. Addendum: 07/27/17 at 1523 by Venecia Roberson PT PHYSICAL THERAPY CO-SIGN The Physical Therapy Progress Notes documented by Administrative Accountant have been reviewed. I CONCUR W/WARD AIDE NOTE; WILL CONT TO FOLLOW UP WITH Pt Reviewed/Co-Signed by: Venecia Roberson PT Documentation Done by: SHARRON APARICIO WARD AIDE
--- NOTE | 2017-07-27 11:30 | NUR ---
Social Service Notes: [facility], Call me back in regards to patient's inquiry for short term-placement for physical therapy. Per Malini she received patient's information and accepted Patient to their facility. Stated that she will be arranging Patient's transportation from [facility] to their facility today and will be calling me back with transport information, time for pick and shovel man, Patient room number and receiving MD information with in the next hour. I thanked Malini for the information and ended the call.
--- NOTE | 2017-07-27 12:00 | NUR ---
Social Service Notes: Malini from [facility] call me back stating that she has already arrange patient's picking belt operator time with [facility] transport between 3:00pm to 5:00pm. Malini Provided Patient's room number 206 A with Accepting Doctor Jose Alfredo. Charge nurse Dora and case managers Teja are aware.
--- NOTE | 2017-07-27 12:00 | NUR ---
PATIENT WAS SLEEPING COMFORTABLY, EASILY AROUSABLE BY NAME. RESPIRATION EVEN, UNLABOR ON 2 L NC. NO DISTRESS NOTED AT THIS TIME. VS IS STABLE. MEDS WERE GIVEN PER ORDER
[2017-07-27 12:32] VITALS: BP 126/68
[2017-07-27] MEDS ORDERED: PROC10I SUBQ (12:52)
--- NOTE | 2017-07-27 16:02 | NUR ---
CALLED AND GAVE REPORT TO [facility]. DISCHARGE INSTRUCTION WAS GIVEN TO THE PATIENT. PATIENT VERBALIZED UNDERSTANDING. ID BAND WAS REMOVED. ALL BELONGINGS WERE TAKEN WITH THE PATIENT. PATIENT IS STABLE AT THIS TIME
--- NOTE | 2017-07-27 16:15 | NUR ---
PATIENT WAS ESCORTED OUT IN WHEELCHAIR BY STAFF AND TRANSPORTER. DISCHARGE PAPERWORK WAS GIVEN TO THE TRANSPORTER. PATIENT IS STABLE AT THIS TIME
[2017-07-28] MEDS ORDERED: EPOETIN ALFA 10,000 UNITS/ML VIAL SUBQ SCH (09:00)
== END 2017-07-27 16:15 | DRG 291 ==
LOC: MED 15:39 → MIC 07-24 01:57 → MTU 07-24 07:51
PROVIDERS: ADMIT General Practice; ATTEND General Practice
PROC: 5A1D70Z Performance of Urinary Filtration, Intermittent, Less than 6 Hours Per Day (ICD-10-PCS; 2017-07-24)
PROC: 30233N1 Transfusion of Nonautologous Red Blood Cells into Peripheral Vein, Percutaneous Approach (ICD-10-PCS; principal; 2017-07-26)
DX: I13.2 Hypertensive heart and chronic kidney disease with heart failure and with stage 5 chronic kidney disease, or end stage renal disease (principal); N17.0 Acute kidney failure with tubular necrosis; I50.43 Acute on chronic combined systolic (congestive) and diastolic (congestive) heart failure; G93.40 Encephalopathy, unspecified; N18.6 End stage renal disease; E44.0 Moderate protein-calorie malnutrition; I42.9 Cardiomyopathy, unspecified; I16.0 Hypertensive urgency; E87.5 Hyperkalemia; F19.90 Other psychoactive substance use, unspecified, uncomplicated; F25.9 Schizoaffective disorder, unspecified; R74.8 Abnormal levels of other serum enzymes; R06.03 Acute respiratory distress; F29 Unspecified psychosis not due to a substance or known physiological condition; E83.39 Other disorders of phosphorus metabolism; D50.9 Iron deficiency anemia, unspecified; R79.89 Other specified abnormal findings of blood chemistry; F41.9 Anxiety disorder, unspecified; F32.9 Major depressive disorder, single episode, unspecified; Z99.2 Dependence on renal dialysis; Z59.0 Homelessness; Z88.8 Allergy status to other drugs, medicaments and biological substances; Z79.899 Other long term (current) drug therapy; Z68.26 Body mass index [BMI] 26.0-26.9, adult; Z83.3 Family history of diabetes mellitus; Z82.3 Family history of stroke; Z82.49 Family history of ischemic heart disease and other diseases of the circulatory system; Z91.14 Patient's other noncompliance with medication regimen; Y92.89 Other specified places as the place of occurrence of the external cause; Z88.5 Allergy status to narcotic agent; Z88.2 Allergy status to sulfonamides
CPT/HCPCS: 36415; 71045; 80048; 80053; 82150; 82550; 82553; 82728; 83036; 83540; 83690; 83735; 83880; 84100; 84436; 84439; 84443; 84479; 84484; 85025; 85610; 85730; 86886; 86900; 86901; 86920; 87081; 90935; 93005; 96372; 97110; 97116; 97530; 99285; G0480; G0482; J0360; J0885; J1200; J1630; J1644; J1940; J2060; J2916; J7030; P9016; Q0092; Q0163

== ENCOUNTER 2017-10-01 21:45 | Inpatient (IN) | payer OTHER, MEDICAID ==
[~2017-10-01] VITALS: Ht 167.6 cm; Wt 69.4 kg
[~2017-10-01 21:45] MED LIST changes: -FURO-571 PO; +PROC10I SUBQ; -TRAZ-286 PO; +TRAZ-343 PO
--- NOTE | 2017-10-01 21:45 | NUR ---
PT BIBA BLS. TAKEN TO BED 9
[2017-10-01 21:47] VITALS: BP 232/141
--- NOTE | 2017-10-01 22:06 | NUR ---
PANTERA C/O RT KNEE PAIN, DEPRESSION, AND ITCHING. PT IS HOMELESS, BROUGHT IN W/ WHEELCHAIR. PT HAS +2 PITTING EDEMA TO BL LOWER EXTREMETIES, +PEDAL PULSES, +CMS. PT IS AWAKE AND VERBALLY AGGRESSIVE, ALERT TO NAME AND LOCATION. ER AWARE OF PT STATUS. Addendum: 10/02/17 at 0009 by SociogramicsWL DIAYSIS SHUNT TO LEFT FOREARM, +BRUIT AND +THRILL.
--- NOTE | 2017-10-01 22:06 | NUR ---
LAB AT BEDSIDE.
--- NOTE | 2017-10-01 22:23 | NUR ---
X-Ray at bedside.
[2017-10-01 22:30] LABS: BASOPHILS % (AUTO) 0.4 % (0.0-2.0); EOSINOPHILS # (AUTO) 0.4 K/uL (0-0.4); EOSINOPHILS % (AUTO) 5.2 % (0.0-4.0); HEMOGLOBIN 7.4 g/dL (12.0-16.0); LYMPHOCYTES # (AUTO) 1.5 K/uL (2.5-16.5); LYMPHOCYTES % (AUTO) 18.1 % (20.5-51.1); MEAN CORPUSCULAR HEMOGLOBIN 26 pg (27-31); MEAN CORPUSCULAR HGB CONC 31 g/dL (33-37); MEAN CORPUSCULAR VOLUME 82.5 fL (80-94); MONOCYTES # (AUTO) 0.4 K/uL (0.8-1.0); MONOCYTES % (AUTO) 5.1 % (1.7-9.3); NEUTROPHILS % (AUTO) 71.2 % (42.2-75.2); PLATELET COUNT (AUTO) 144 K/uL (140-450); RED BLOOD CELL COUNT(AUTO) 2.91 MIL/uL (4.20-5.40); RED CELL DISTRIBUTION WIDTH 16.8 % (11.6-13.7); WHITE BLOOD COUNT (AUTO) 8.4 K/uL (4.8-10.8)
--- NOTE | 2017-10-01 22:30 | NUR ---
EKG PERFORMED AT BEDSIDE WITH GOWN AND BLANKET ON. PT REFUSED TO LIE DOWN SEMI FOWLERS
[2017-10-01 22:44] LABS: ALBUMIN 3.3 g/dL (3.4-5.0); ANION GAP 16.7 (8-16); CARBON DIOXIDE 24.3 mmol/L (21-32); TOTAL BILIRUBIN 0.5 mg/dL (0.0-1.0)
[2017-10-01 22:45] LABS: PROTHROMBIN TIME 10.3 secs (10.8-13.4)
--- NOTE | 2017-10-01 23:00 | NUR ---
PT REFUSES TO GIVE URINE, REFUSES STRAIGHT CATH.
[2017-10-01 23:07] LABS: CREATININE 12.6 mg/dL (0.6-1.3)
[2017-10-01 23:10] LABS: CKMB RELATIVE INDEX 3.1 (0.0-2.5); CREATINE KINASE MB 7.8 ng/mL (0-3.6)
--- NOTE | 2017-10-02 | NUR ---
PT REFUSES IV, CHARGE NURSE UNABLE TO GAIN IV ACCESS, PT CONTINUES TO REFUSE IV.
--- NOTE | 2017-10-02 00:03 | NUR ---
Dr. Jones evaluating patient at bedside.
--- NOTE | 2017-10-02 00:05 | NUR ---
PT PROVIDED W/ SANDWICH AND APPLEJUICE.
[2017-10-02] MEDS ORDERED: NACL 0.9% 1,000 ML IV SCH (00:13)
[2017-10-02] MEDS ORDERED: ZOLPIDEM 5 MG TAB PO PRN (00:15)
[2017-10-02] MEDS ORDERED: HYDROcodone/APAP 7.5/325 MG 1 TAB PO PRN (00:15)
[2017-10-02] MEDS ORDERED: ACETAMINOPHEN 325 MG TAB PO PRN (00:15)
[2017-10-02] MEDS ORDERED: ONDANSETRON 4 MG/2 ML VIAL IVP PRN (00:15)
[2017-10-02] MEDS ORDERED: cloNIDine 0.1 MG TAB PO ONE (00:40)
--- NOTE | 2017-10-02 00:41 | NUR ---
Dr. Vasquez evaluating patient at bedside.
[2017-10-02 00:52] LABS: FREE T4 (FREE THYROXINE) 0.71 ng/dL (0.76-1.46); MAGNESIUM 2.9 mg/dL (1.8-2.4); PHOSPHORUS 6.6 mg/dL (2.5-4.9); THYROID STIMULATING HORMONE 0.31 uIU/mL (0.34-3.74)
[2017-10-02 01:00] VITALS: BP 241/135
--- NOTE | 2017-10-02 01:00 | NUR ---
PT ARRIVED ON UNIT VIA GURNEY AND WAS ASSISTED WITH TRANSFER TO BED. ED FROM ER GAVE REPORT AT BEDSIDE. PT AOX 3. SKIN INTACT SHE HAS NON PITTING EDEMA OF LOWER LEGS. PT ALSO HAS AV FISTULA ON LEFT SIDE POSITIVE FOR THRILL AND BRUIT. PT ON DIALYSIS T , SAT. PT HAS NOT GONE TO DIALYSIS SINCE (MISSING 2 APPOINTMENTS) PT IS A FALLS RISK AND ALL FALLS PRECAUTIONS IN PLACE. PT V/S FOLLOWS T 98.2 P 90 R 22 B/P 241/135 02 93 WITH 2L VIA N/C. PT WAS GIVEN CLONIDINE 0.[address] JONES AWARE OF HIGH B/P AND THE MEDS GIVEN IN ER. PT ALSO REFUSES ANY IV INSERTION DUE TO DIFFICULTY FINDING A VEIN. HOWEVER PT ALSO REFUSES CENTRAL LINE. PT LUNG SOUNDS ARE DIMMINISHED IN LUNG BASES BILATERALLY. PT SAYS THAT SHE URINATES X1 A DAY AND REFUSED TO GIVE A URINE SAMPLE OR HAVE A STRAIGHT CATHETER.
--- NOTE | 2017-10-02 01:02 | NUR ---
APatient will be admitted to care of DR MARLOW. Admited to TELE. Will go to room 114. Belongings list completed. Report to JERARDO BIRCH.
--- NOTE | 2017-10-02 01:30 | NUR ---
DR. BARBOZA CAME TO EVALUATE PT FOR ADMISSION. PT DEMEANOR WAS SOMEWHAT HOSTILE TO ALL THE ADMISSION QUESTIONS. PT BECAME VERBALLY ABUSIVE TOWARD STAFF.
[2017-10-02] MEDS ORDERED: NITROGLYCERIN 0.4 MG TAB SL PRN (01:50)
--- NOTE | 2017-10-02 02:21 | NUR ---
PT C/O 6/10 PAIN FOR BACK AND KNEE, GIVEN NORCO 7.5/325MG TABLET. PT B/P WAS REASSESSED AT 226/130. MD MADE AWARE. PT IN BED WITH CALL [place] IN REACH. ORIENTED TO ROOM AND HOSPITAL ROUTINES.
[2017-10-02 04:00] VITALS: BP 206/122
--- NOTE | 2017-10-02 04:30 | NUR ---
PT SLEEPING SITTING UP IN BED N/C RUNNING AT 3L N/C.BREATHING EVEN BUT SLIGHTLY LABORED.. LUNG SOUNDS DIMINISHED AT BASES BILATERALLY PT HAS NO C/O VOICED V/S FOLLOWS T 98.0 P 80 R 22 B/P 206/122 02 93%. ALL FALLS PRECAUTIONS IN PLACE.
[2017-10-02] MEDS: LEVOTHYROXINE 0.025 MG TAB PO SCH ×2 (05:52→05:55)
--- NOTE | 2017-10-02 05:57 | NUR ---
PT DECIDED TO REFUSE SYNTHROID THIS AM
[2017-10-02] MEDS ORDERED: SODIUM POLYSTYRENE 15 GM/60 ML UDBTL PO SCH (06:20)
[2017-10-02 06:30] LABS: CHOL/HDL RATIO 1.9 (1-4.5)
--- NOTE | 2017-10-02 07:04 | NUR ---
RECEIVED CRITICAL LAB AT 0650 FOR TROPONIN LEVEL 0.168 FROM [place] IN LAB, DR AURELIO CHAIDEZ MD MADE AWARE.
[2017-10-02] MEDS ORDERED: hydrALAZINE 25 MG TAB PO SCH (07:19)
--- NOTE | 2017-10-02 07:32 | NUR ---
REPORT RECEIVED FROM COMMERCIAL COUNSEL NURSE. PT SITTING UP IN BED, ALERT, VERBAL, IRRITABLE. DENIES ANY DISCOMFORT, NO SIGNS OF ACUTE DISTRESS. CALL LIGHT WITHIN REACH, BED IN LOW POSITION. WILL CONTINUE TO MONITOR.
--- NOTE | 2017-10-02 07:36 | NUR ---
REPORT GIVEN TO DAYSHIFT RN AT BEDSIDE PT IN STABLE CONDITION.
[2017-10-02 08:00] VITALS: BP 236/149
--- NOTE | 2017-10-02 08:00 | NUR ---
DIALYSIS ORDER RECEIVED. DIALYSIS NURSE NUSRAT NOTIFIED.
--- NOTE | 2017-10-02 08:22 | NUR ---
PATIENT HAS BEEN SCREENED AND CATEGORIZED HIGH NUTRITION RISK. PATIENT WILL BE SEEN WITHIN 1-2 DAYS OF ADMISSION. 10/02/17 10/03/[address]
[2017-10-02] MEDS: SEVELAMER CARBONATE 800 MG TAB PO SCH ×3 (08:23→17:40)
[2017-10-02] MEDS: DIVALPROEX 500 MG TABER PO SCH ×2 (08:23→23:02)
[2017-10-02] MEDS: NIFEdipine 60 MG TABER PO SCH ×2 (08:23→23:05)
[2017-10-02] MEDS: ASPIRIN 81 MG TAB.CHEW PO SCH (08:23)
[2017-10-02] MEDS: LABETALOL 100 MG TAB PO SCH ×2 (08:23→23:03)
[2017-10-02] MEDS: cloNIDine 0.1 MG TAB PO SCH ×2 (08:24→09:54)
[2017-10-02] MEDS: risperiDONE 1 MG TAB PO SCH (08:25)
[2017-10-02] MEDS: CITALOPRAM 20 MG TAB PO SCH (08:26)
[2017-10-02] MEDS: DOCUSATE SODIUM 100 MG GELCAP PO SCH ×2 (08:30→23:01)
--- NOTE | 2017-10-02 08:40 | NUR ---
PT NOTE 0838 RECEIVED ORDER FOR PT EVAL; CHART REVIEWED, VITALS PER CHART 248/145 AND VERIFIED WITH RN THAT Pt's BP CONT TO BE HIGH. Pt IS SCHEDULED TO HAVE HD TODAY; WILL FOLLOW UP WITH Pt WHEN VITALS ARE STABLE. RN NOTIFIED.
[2017-10-02] MEDS ORDERED: cloNIDine 0.1 MG TAB PO SCH (09:00)
[2017-10-02] MEDS ORDERED: METOPROLOL 25 MG TAB PO SCH (09:00)
[2017-10-02] MEDS ORDERED: BENZTROPINE 1 MG TAB PO SCH (09:00)
--- NOTE | 2017-10-02 10:05 | NUR ---
DIRECTOR OF ADVERTISING SALES AT BEDSIDE, PT REFUSES XRAY.
--- NOTE | 2017-10-02 10:18 | NUR ---
ECHOCARDIOGRAM AT BEDSIDE.
--- NOTE | 2017-10-02 11:04 | NUR ---
DR. COTTRELL AT BEDSIDE ASSESSING PT.
[2017-10-02 12:00] VITALS: BP 170/103
--- NOTE | 2017-10-02 13:33 | NUR ---
10/02/17 RD INITIAL ASSESSMENT COMPLETED PLEASE REFER TO NUTRITION ASSESSMENT UNDER CARE ACTIVITY FOR ESTIMATED NUTRITIONAL NEEDS. 1. CONTINUE RENAL DIET TOLERATED 2. PROVIDE DIET EDUCATION ON RENAL DIET. 3. RD TO FOLLOW-UP 2-3 DAYS, HIGH RISK [address]
[2017-10-02] MEDS: hydrALAZINE 25 MG TAB PO SCH ×2 (14:00→23:02)
--- NOTE | 2017-10-02 14:02 | NUR ---
EGG PACKER AT BEDSIDE FOR HEMODIALYSIS.
--- NOTE | 2017-10-02 15:02 | NUR ---
PT REFUSES [employer] DEVELOPER LEADS.
[2017-10-02 16:00] VITALS: BP 155/72
--- NOTE | 2017-10-02 16:45 | NUR ---
DIALYSIS DONE, 4000ML TAKEN OUT PER REPORT, PT SLEEPING, BECOMES IRRITATED WHEN AROUSED, CONTINUES TO REFUSE CARDIAC LEAD PLACEMENT, RESP EVEN UNLABORED, SKIN WARMD RY COLOR WNL, NO C/O PAIN, CALL [place] WITHIN REACH WILL CONTINUE TO MONITOR
--- NOTE | 2017-10-02 19:20 | NUR ---
REPORT GIVEN TO ARMATURE WINDER REPAIRER NURSE. PT SLEEPING COMFORTABLY IN BED, RESPIRATIONS EVEN & UNLABORED.
--- NOTE | 2017-10-02 19:25 | NUR ---
RECEIVED PT FROM GERARDO RN PT AAOX2 NOT IV ACCESS PT REFUSED TO HAVE IV AND DR AWARE AV SHUNT ON LEFT ARM , NOT TELEMETRY BOX PT REFUSED TOO ACCORDING TO RN REPORT PT REFUSED NURSING CARE AND FOLLOW DR ORDER INITIAL ASSESSMENT DONE.
[2017-10-02 20:00] VITALS: BP 190/97
[2017-10-02] MEDS: ATORVASTATIN 20 MG TAB PO SCH (21:00)
--- NOTE | 2017-10-02 21:00 | NUR ---
PT REFUSED TO TAKE ANY MEDICATION WE WILL CONTINUE MONITORING
[2017-10-02] MEDS: traZODone 50 MG TAB PO SCH (23:05)
--- NOTE | 2017-10-02 23:05 | NUR ---
PT TAKEN SOME MEDIC
[2017-10-03] VITALS: BP 156/90
--- NOTE | 2017-10-03 | NUR ---
AFTER TAKEN MEDIC PT BLOOD PRESSURE DROP TO 156/90 PT GETTING SLEEP NOT DISTRESS NOTED AT THIS TIME
[2017-10-03 04:00] VITALS: BP 154/79
--- NOTE | 2017-10-03 04:00 | NUR ---
SPONGE BATH GIVEN LINEN CHANGED PT MORE COOPERATIVE TO FOLLOW DR SWANSON
[2017-10-03] MEDS: LEVOTHYROXINE 0.025 MG TAB PO SCH (05:53)
[2017-10-03] MEDS: hydrALAZINE 25 MG TAB PO SCH ×3 (05:54→20:48)
--- NOTE | 2017-10-03 06:09 | NUR ---
PT COOPERATIVE TO TAKE HER ORAL MEDIC SHE DOES NOT COMPLAINT OF ANY DISCOMFORT AT THIS TIME
--- NOTE | 2017-10-03 07:15 | NUR ---
RECEIVED PT FROM MEDICAL TECHNOLOGIST HEMATOLOGY NURSE, PT IS AWAKE LYING ON THE BED WITH SIDE RAILS UP AND CALL LIGHT WITHIN REACH. FALL PRECAUTION INITIATED. PT HAS A LEFT ARM FISTULA, INTACT, USED FOR DIALYSIS. PT REFUSES TO HAVE AN IV LINE INSERTED. NO SIGN OF DISTRESS NOTED AND WILL CONTINUE TO MONITOR.
[2017-10-03 08:00] VITALS: BP 174/90
--- NOTE | 2017-10-03 08:15 | NUR ---
DR. MARLOW CAME TO THE PT'S ROOM WITH THE RESIDENT DOCTORS. INFORMED DR. MARLOW THAT PT IS REFUSING TO HAVE AN IV LINE INSERTED AND IS REFUSING HEPARIN ALSO. DR. MARLOW ACKNOWLEDGED AND INFORMED DR. FERRIS TO FOLLOW THROUGH.
[2017-10-03] MEDS: NIFEdipine 60 MG TABER PO SCH ×2 (08:47→20:47)
[2017-10-03] MEDS: LABETALOL 100 MG TAB PO SCH ×2 (08:48→20:48)
[2017-10-03] MEDS: CITALOPRAM 20 MG TAB PO SCH (08:49)
[2017-10-03] MEDS: DIVALPROEX 500 MG TABER PO SCH ×2 (08:49→20:49)
[2017-10-03] MEDS: cloNIDine 0.1 MG TAB PO SCH ×2 (08:49→20:49)
[2017-10-03] MEDS: risperiDONE 1 MG TAB PO SCH (08:50)
[2017-10-03] MEDS: SEVELAMER CARBONATE 800 MG TAB PO SCH ×3 (08:50→17:17)
[2017-10-03] MEDS: DOCUSATE SODIUM 100 MG GELCAP PO SCH ×2 (08:52→20:53)
[2017-10-03] MEDS: ASPIRIN 81 MG TAB.CHEW PO SCH (08:52)
[2017-10-03] MEDS ORDERED: MINOXIDIL 2.5 MG TAB PO SCH (09:00)
--- NOTE | 2017-10-03 09:00 | NUR ---
PT IS AWAKE AND MEDICATIONS WERE GIVEN, BP WAS TAKEN PER PARAMETERS. PT TOLERATED THE MEDICATIONS AND NO SIGN OF DISTRESS NOTED. PT REFUSED TO TAKE THE COLACE, ASPIRIN AND HEPARIN INJECTION, MD INFORMED. WILL CONTINUE TO MONITOR.
--- NOTE | 2017-10-03 09:51 | NUR ---
P.T. NOTES PNatalee MARINA COMPLETED 10/02/17; ENDORSED TO NURSING. Addendum: 10/03/17 at 0951 by Elizabeth Reid PT Amended: Links added.
--- NOTE | 2017-10-03 11:05 | NUR ---
SPOKE TO DR. COTTRELL REGARDING THE PT AND MD SAID THAT HE WILL ORDER DIALYSIS FOR THE PT TOMORROW.
[2017-10-03] MEDS ORDERED: EPOETIN ALFA 10,000 UNITS/ML VIAL IV SCH (11:09)
[2017-10-03 11:45] LABS: BASOPHILS % (AUTO) 0.2 % (0.0-2.0); EOSINOPHILS # (AUTO) 0.3 K/uL (0-0.4); EOSINOPHILS % (AUTO) 3.8 % (0.0-4.0); LYMPHOCYTES # (AUTO) 1.2 K/uL (2.5-16.5); LYMPHOCYTES % (AUTO) 15.8 % (20.5-51.1); MEAN CORPUSCULAR HEMOGLOBIN 26 pg (27-31); MEAN CORPUSCULAR HGB CONC 31 g/dL (33-37); MEAN CORPUSCULAR VOLUME 82.8 fL (80-94); MONOCYTES # (AUTO) 0.5 K/uL (0.8-1.0); MONOCYTES % (AUTO) 6.8 % (1.7-9.3); NEUTROPHILS # (AUTO) 5.7 K/uL (1.8-7.7); NEUTROPHILS % (AUTO) 73.4 % (42.2-75.2); PLATELET COUNT (AUTO) 127 K/uL (140-450); RED BLOOD CELL COUNT(AUTO) 2.47 MIL/uL (4.20-5.40); RED CELL DISTRIBUTION WIDTH 16.9 % (11.6-13.7); WHITE BLOOD COUNT (AUTO) 7.8 K/uL (4.8-10.8)
--- NOTE | 2017-10-03 11:47 | NUR ---
ANGELA FROM LAB CALLED AND REPORTED MARYPT'S HEMOGLOBIN VALUE OF 6.4 AND HEMATOCRIT WHICH IS 20.4, ACKNOWLEDGED AND WILL INFORM .
--- NOTE | 2017-10-03 11:55 | NUR ---
CHINA FROM LAB CALLED AND REPORTED THE PT'S CREATININE BXIII3N 9.1
[2017-10-03 11:56] LABS: CREATININE 9.1 mg/dL (0.6-1.3)
[2017-10-03 12:00] VITALS: BP 148/78
[2017-10-03 12:50] LABS: HEMOGLOBIN 6.4 g/dL (12.0-16.0)
--- NOTE | 2017-10-03 12:50 | NUR ---
CHINA FROM LAB CALLED AND RE[PORTED THE TROPONIN LEVEL OF THE PT WHICH IS 1.115. ACKNOWLEDGED AND WILL INFORM THE MD.
[2017-10-03 12:52] LABS: HEMATOCRIT 20.4 % (36-48)
[2017-10-03 13:06] LABS: MAGNESIUM 2.4 mg/dL (1.8-2.4)
[2017-10-03 13:07] LABS: PHOSPHORUS 4.8 mg/dL (2.5-4.9)
[2017-10-03 15:11] LABS: FOLIC ACID 15.3 ng/mL (>3.0)
--- NOTE | 2017-10-03 15:15 | NUR ---
PT IS AWAKE AND LYING ON THE BED, PT WAS INFORMED THAT IV LINE WILL BE INSERTED AND THE PT STARTED TO TALK AND REFUSED TO HAVE AN IV LINE INSERTED. INFORMED PT THAT THE IV LINE WILL BE USED FOR THE BLOOD TRANSFUSION BECAUSE OF A LOW HEMOGLOBIN WHICH IS 6.4 AND LOW HEMATOCRIT WHICH IS 20.4, BUT NO RESPONSE FROM PT. WILL NOTIFY DR. FERRIS.
[2017-10-03 16:00] VITALS: BP 163/100
--- NOTE | 2017-10-03 16:15 | NUR ---
INFORMED DR. FERRIS THAT PT WAS INFORMED OF THE IV LINE INSERTION AND THE NEED TO HAVE A BLOOD TRANSFUSION BUT PT REFUSED. DR. FERRIS ACKNOWLEDGED AND SAID TO JUST DOCUMENT IT.
--- NOTE | 2017-10-03 17:20 | NUR ---
CALLED DR. FERRIS AND INFORMED HIM THAT PT 'S BP RESULT IS 166/[address] FERRIS SAID THAT HE WILL PUT A ONE TIME ORDER FOR HYDRALAZINE. ACKNOWLEDGED AND WILL FOLLOW THROUGH.
[2017-10-03] MEDS ORDERED: hydrALAZINE 25 MG TAB PO SCH (17:31)
--- NOTE | 2017-10-03 19:25 | NUR ---
ENDORSED PT TO [facility] SHIFT NURSE FOR CONTINUITY OF CARE. PT IS TABLE AT THIS TIME.
--- NOTE | 2017-10-03 19:26 | NUR ---
REPORT RECEIVED FROM AM SHIFT AT BEDSIDE. PT IN STABLE CONDITION. AAOX3. BOARD UPDATED AND INTRODUCED SELF TO PT. PT ON 2.5L VIA NC. PT HAS HD ON MWF AND HD ACCESS ON L ARM VIA FISTULA. PT DENIED TELE MONITORING AND PERIPHERAL IV ACCESS. SKIN WARM, DRY, AND INTACT WITH NO OPEN WOUNDS. PT HAS ALLERGIES TO LISINOPRIL, MIRTAZAPINE, AND QUETIAPINE. BED LOCKED IN LOW POSITION. CALL [place] WITHIN REACH.
[2017-10-03 20:00] VITALS: BP 155/82
--- NOTE | 2017-10-03 20:45 | NUR ---
HYDRALAZINE, NIFEDIPINE, DEPAKOTE, LABETALOL, AND TRAZODONE GIVEN. PT TOLERATED WELL. PT DENIED HEPARIN, COLACE, AND LIPITOR STATING THAT SHE DOES NOT EVER TAKE THESE.
[2017-10-03] MEDS: traZODone 50 MG TAB PO SCH (20:49)
[2017-10-03] MEDS: ATORVASTATIN 20 MG TAB PO SCH (20:53)
--- NOTE | 2017-10-03 23:39 | NUR ---
TYL 650MG GIVEN FOR HEADACHE 09/29. PT TOLERATED WELL.
[2017-10-04] VITALS: BP 133/74
--- NOTE | 2017-10-04 01:10 | NUR ---
PT SLEEPING COMFORTABLY IN BED. NO S/S OF DISTRESS. WILL CONTINUE TO MONITOR.
[2017-10-04 04:00] VITALS: BP 125/69
--- NOTE | 2017-10-04 04:00 | NUR ---
PT VS STABLE. PT WAS SLEEPING COMFORTABLY IN HIGH FOWLERS BUT AROUSABLE DURING VS CHECK. NO S/S OF DISTRESS.
[2017-10-04] MEDS: LEVOTHYROXINE 0.025 MG TAB PO SCH ×2 (05:45→05:54)
--- NOTE | 2017-10-04 05:45 | NUR ---
HYDRALAZINE GIVEN. PT TOLERATED WELL. LEVOTHYROXINE NOT GIVEN. PT REFUSED SAYING SHE DOES NOT TAKE THIS MEDICATION.
[2017-10-04] MEDS: hydrALAZINE 25 MG TAB PO SCH ×3 (05:46→21:08)
--- NOTE | 2017-10-04 06:40 | NUR ---
AM LABS REFUSED.
--- NOTE | 2017-10-04 07:15 | NUR ---
REPORT GIVEN TO AM NURSE AT BEDSIDE. PT IN STABLE CONDITION.
--- NOTE | 2017-10-04 07:20 | NUR ---
RECEIVED REPORT FROM FOAM DISPENSER RN. PT IS RESTING IN BED, AROUSABLE BY VOICE. AAO X3. PT IS DNR. PT REFUSING IV ACCESS AND TELE MONITORING. IS AWARE. PER FOAM DISPENSER RN, PT IS ALSO REFUSED AM LABS. SATURATING WELL ON 2.5 L NC. LUNGS CTA. NO COMPLAINTS OF PAIN OR DISTRESS. LEFT ARM FISTULAE WITH HD ON //. PT IS AWARE OF DIALYSIS TODAY. SKIN IS INTACT. ALL SAFETY MEASURES IN PLACE, WILL CONTINUE TO MONITOR.
[2017-10-04 08:00] VITALS: BP 150/81
--- NOTE | 2017-10-04 08:15 | NUR ---
PT AGREED TO HAVE TELE MONITORING APPLIED. TELE MONITOR IS APPLIED TO PT.
[2017-10-04] MEDS: VIT-B COMP/VIT-C/FOLIC ACID 1 TAB PO SCH (09:00)
[2017-10-04] MEDS: NIFEdipine 60 MG TABER PO SCH ×2 (09:00→21:06)
[2017-10-04] MEDS: DOCUSATE SODIUM 100 MG GELCAP PO SCH ×2 (09:00→21:00)
[2017-10-04] MEDS: LABETALOL 100 MG TAB PO SCH ×2 (09:00→21:07)
[2017-10-04] MEDS: cloNIDine 0.1 MG TAB PO SCH ×2 (09:00→21:07)
[2017-10-04] MEDS: ASPIRIN 81 MG TAB.CHEW PO SCH (09:00)
[2017-10-04] MEDS: CITALOPRAM 20 MG TAB PO SCH (10:11)
[2017-10-04] MEDS: risperiDONE 1 MG TAB PO SCH (10:11)
[2017-10-04] MEDS: SEVELAMER CARBONATE 800 MG TAB PO SCH ×3 (10:11→16:24)
[2017-10-04] MEDS: DIVALPROEX 500 MG TABER PO SCH ×2 (10:11→21:07)
--- NOTE | 2017-10-04 10:11 | NUR ---
DIALYSIS NURSE HERE TO PERFORM HD. ALL BP MEDS WITHHELD. OTHER SCHEDULED MEDICATIONS ADMINISTERED PER MD ORDERS.
[2017-10-04 10:20] LABS: BASOPHILS # (AUTO) 0.1 K/uL (0.00-0.22); BASOPHILS % (AUTO) 1.1 % (0.0-2.0); EOSINOPHILS # (AUTO) 0.3 K/uL (0-0.4); EOSINOPHILS % (AUTO) 4.9 % (0.0-4.0); LYMPHOCYTES # (AUTO) 1.4 K/uL (2.5-16.5); LYMPHOCYTES % (AUTO) 23.3 % (20.5-51.1); MEAN CORPUSCULAR HEMOGLOBIN 26 pg (27-31); MEAN CORPUSCULAR HGB CONC 31 g/dL (33-37); MEAN CORPUSCULAR VOLUME 82.4 fL (80-94); MONOCYTES # (AUTO) 0.4 K/uL (0.8-1.0); MONOCYTES % (AUTO) 7.1 % (1.7-9.3); NEUTROPHILS # (AUTO) 3.9 K/uL (1.8-7.7); NEUTROPHILS % (AUTO) 63.6 % (42.2-75.2); PLATELET COUNT (AUTO) 135 K/uL (140-450); RED BLOOD CELL COUNT(AUTO) 2.55 MIL/uL (4.20-5.40); RED CELL DISTRIBUTION WIDTH 16.9 % (11.6-13.7); WHITE BLOOD COUNT (AUTO) 6.2 K/uL (4.8-10.8)
[2017-10-04 10:30] LABS: HEMOGLOBIN 6.6 g/dL (12.0-16.0)
[2017-10-04 10:54] LABS: ANION GAP 11.4 (8-16); CARBON DIOXIDE 28.9 mmol/L (21-32); POTASSIUM 5.3 mmol/L (3.5-5.1)
[2017-10-04 11:01] LABS: CREATININE 9.2 mg/dL (0.6-1.3)
[2017-10-04 12:00] VITALS: BP 156/102
--- NOTE | 2017-10-04 12:42 | NUR ---
PT REFUSING SCHEDULED MEDICATIONS. SAYS SHE WILL NOT TAKE ANY MEDICATIONS UNTIL SHE EATS LUNCH, OTHERWISE SHE WILL BECOME NAUSEATED. INFORMED PT THAT HER BLOOD PRESSURE IS HIGH, AND OFFERED SCHEDULED HYDRALAZINE. PT CONTINES TO REFUSE. PT'S LUNCH IS HERE HOWEVER SHE REFUSED TO EAT THE FOODS ON THE TRAY. PT CALLED [facility] DIRECTLY AND LEFT MESSAGE. WILL CALL [facility] AGAIN FOR PT.
--- NOTE | 2017-10-04 13:40 | NUR ---
PT SLEEPING, AROUSABLE BY VOICE, AND REFUSING TO TAKE HYDRALAZINE SCHEDULED FOR 1300.
--- NOTE | 2017-10-04 15:51 | NUR ---
PT SLEEPING IN BED, NO SIGNS OF DISTRESS. AROUSABLE BY VOICE. NO COMPLAINTS OF PAIN OR DISCOMFORT. WILL CONTINUE TO MONITOR.
[2017-10-04 16:00] VITALS: BP 161/85
--- NOTE | 2017-10-04 18:03 | NUR ---
PATIENT'S REQUESTED DINNER IS AT BEDSIDE. PT IS STILL SLEEPING, AROUSABLE BY VOICE.
--- NOTE | 2017-10-04 19:14 | NUR ---
ENDORSED PLAN OF CARE TO SENIOR MARKETING ENGINEER RN. PT IN STABLE CONDITION.
--- NOTE | 2017-10-04 19:15 | NUR ---
RECEIVED BEDSIDE REPORT FROM DAY SHIFT NURSE RENATA RN, PT STABLE, NO DISTRESS NOTED, PT HAS NO IV ACCESS AND HAS BEEN REFUSING ANY IV INSERTION, PT ON NC 2.5LPM O2, NO SOB, PT SLEEPING, INITIAL ASSESSMENT DONE, ALL SAFETY PRECAUTION MET, WILL CONTINUE TO MONITOR.
[2017-10-04 20:00] VITALS: BP 182/77
--- NOTE | 2017-10-04 20:30 | NUR ---
PT BP 182/77 HR 76, NO DISTRESS NOTED, ASYMPTOMATIC, PT SLEEPING, PT STATED SHE WILL NOT TAKE ANY MEDICATION BEFORE EATING FIRST. WILL MEDICATE PT SOON SHE FINISH EATING. CALL LIGHT WITHIN REACH, WILL CONTINUE TO MONITOR.
[2017-10-04] MEDS: ATORVASTATIN 20 MG TAB PO SCH (21:00)
[2017-10-04] MEDS: traZODone 50 MG TAB PO SCH (21:08)
--- NOTE | 2017-10-04 21:08 | NUR ---
DUE MEDICATION ADMINISTERED, PT TOLERATED WELL, PT REFUSED HEPARIN, COLACE AND LIPITOR, STATED THAT SHE DOES NOT NEED IT, PT RESTING, NO DISTRESS NOTED, CALL LIGHT WITHIN REACH, WILL CONTINUE TO MONITOR.
--- NOTE | 2017-10-04 23:55 | NUR ---
PT SLEEPING, NO DISTRESS NOTED, V/S TAKEN, WNL, NO DISTRESS NOTED, CALL LIGHT WITHIN REACH, WILL CONTINUE TO MONITOR.
[2017-10-05] VITALS: BP 155/83
[2017-10-05 04:00] VITALS: BP 164/86
--- NOTE | 2017-10-05 04:11 | NUR ---
CHECKED ON PT, PT SLEEPING, NO DISTRESS NOTED, V/S TAKEN, WITHIN PT BASELINE, BP MEDICATION SCHEDULED WILL BE GIVEN, CALL LIGHT WITHIN REACH, WILL CONTINUE TO MONITOR.
[2017-10-05] MEDS: hydrALAZINE 25 MG TAB PO SCH ×2 (05:46→12:46)
[2017-10-05] MEDS: LEVOTHYROXINE 0.025 MG TAB PO SCH (05:46)
--- NOTE | 2017-10-05 05:46 | NUR ---
DUE MEDICATION ADMINISTERED, PT DOES NOT WANT TO TAKE MEDICATION WITHOUT EATING FIRST, PT REFUSED LEVOTHYROXINE, PT RESTING, NO DISTRESS NOTED, CALL LIGHT WITHIN REACH, WILL CONTINUE TO MONITOR.
--- NOTE | 2017-10-05 06:30 | NUR ---
PT REFUSED BLOOD DRAW, NOTIFIED DR. KALE DR. STATED UNDERSTANDING
--- NOTE | 2017-10-05 06:40 | NUR ---
PT HAS NOT DONE ANY BM THROUGHOUT THE SHIFT, WILL ENDORSED TO DAY SHIFT NURSE THAT PT STILL HAS OCCULT BLOOD TO BE COLLECTED.
--- NOTE | 2017-10-05 07:23 | NUR ---
ENDORSED PT TO DAY SHIFT NURSE YONNY KURTZ, PT STABLE, NO DISTRESS NOTED, CALL LIGHT WITHIN REACH.
[2017-10-05 07:26] LABS: BASOPHILS % (AUTO) 0.6 % (0.0-2.0); EOSINOPHILS # (AUTO) 0.3 K/uL (0-0.4); EOSINOPHILS % (AUTO) 5.1 % (0.0-4.0); HEMATOCRIT 23.3 % (36-48); HEMOGLOBIN 7.4 g/dL (12.0-16.0); LYMPHOCYTES # (AUTO) 1.2 K/uL (2.5-16.5); LYMPHOCYTES % (AUTO) 21.1 % (20.5-51.1); MEAN CORPUSCULAR HEMOGLOBIN 26 pg (27-31); MEAN CORPUSCULAR HGB CONC 32 g/dL (33-37); MEAN CORPUSCULAR VOLUME 83.1 fL (80-94); MONOCYTES # (AUTO) 0.5 K/uL (0.8-1.0); MONOCYTES % (AUTO) 9.5 % (1.7-9.3); NEUTROPHILS # (AUTO) 3.6 K/uL (1.8-7.7); NEUTROPHILS % (AUTO) 63.7 % (42.2-75.2); PLATELET COUNT (AUTO) 120 K/uL (140-450); RED BLOOD CELL COUNT(AUTO) 2.81 MIL/uL (4.20-5.40); RED CELL DISTRIBUTION WIDTH 15.7 % (11.6-13.7); WHITE BLOOD COUNT (AUTO) 5.6 K/uL (4.8-10.8)
--- NOTE | 2017-10-05 07:31 | NUR ---
ENDORSED PT TO DAY SHIFT NURSE ELLI RN, PT STABLE, NO DISTRESS NOTED, CALL LIGHT WITHIN REACH.
--- NOTE | 2017-10-05 07:35 | NUR ---
RECEIVED PT FROM EVENT MGR NURSE, PT IS AWAKE AND LYING ON THE BED WITH SIDE RAILS UP AND CALL LIGHT WITHIN REACH. FALL PRECAUTION INITIATED. PT HAS A LEFT UPPER ARM SHUNT FOR DIALYSIS AND NO IV LINE ACCESS BECAUSE PT REFUSES TO HAVE AN INSERTION. AG SERVICE MANAGER IS ON THE BEDSIDE DRAWING BLOOD FROM THE PT AND PT IS QUIET AND NO REFUSAL NOTED. PT IS ON O2 2.5L OS VIA NC. NO SIGN OF DISTRESS NOTED AND WILL CONTINUE TO MONITOR.
[2017-10-05 08:00] VITALS: BP 156/79
[2017-10-05 08:02] LABS: ANION GAP 10.4 (8-16); CARBON DIOXIDE 26.2 mmol/L (21-32); POTASSIUM 5.6 mmol/L (3.5-5.1)
[2017-10-05 08:04] LABS: CREATININE 7.9 mg/dL (0.6-1.3)
[2017-10-05 08:05] LABS: MAGNESIUM 2.4 mg/dL (1.8-2.4); PHOSPHORUS 5.1 mg/dL (2.5-4.9)
--- NOTE | 2017-10-05 08:10 | NUR ---
DR. MARLOW AND THE RESIDENT DOCTORS WENT TO THE PT'S ROOM AND SPOKE TO THE PT AND TOLD THE PT REGARDING THE PLAN OF CARE AND PT VERBALIZED UNDERSTANDING. VITAL SIGNS TAKEN AND BP IS HIGH, 171/94, HR IS 58, RESPIRATION IS 18 AND O2 SATURATION IS AT 98% ON 2.5L O2 NC. WILL MEDICATE PT.
[2017-10-05] MEDS: DOCUSATE SODIUM 100 MG GELCAP PO SCH (09:00)
[2017-10-05] MEDS ORDERED: EPOETIN ALFA 10,000 UNITS/ML VIAL IV SCH (09:00)
[2017-10-05] MEDS: ASPIRIN 81 MG TAB.CHEW PO SCH (09:00)
[2017-10-05] MEDS ORDERED: SODIUM POLYSTYRENE 15 GM/60 ML UDBTL PO SCH ×2 (09:00→12:48)
[2017-10-05] MEDS ORDERED: NIFEdipine 30 MG TABER PO SCH ×2 (09:20→21:00)
[2017-10-05] MEDS ORDERED: DIVALPROEX 500 MG TABEC PO SCH ×2 (09:25→21:00)
--- NOTE | 2017-10-05 09:40 | NUR ---
DR. JORGE COTTRELL CAME TO THE PT'S ROOM AND ASSESSED PT. PT'S VITAL SIGNS WERE TAKEN AND O2 WAS DISCONTINUED. NO SIGN OF DISTRESS NOTED ON THE PT. WILL CONTINUE TO MONITOR.
[2017-10-05] MEDS: VIT-B COMP/VIT-C/FOLIC ACID 1 TAB PO SCH (09:47)
[2017-10-05] MEDS: SEVELAMER CARBONATE 800 MG TAB PO SCH ×2 (09:48→12:47)
[2017-10-05] MEDS: cloNIDine 0.1 MG TAB PO SCH (09:48)
[2017-10-05] MEDS: CITALOPRAM 20 MG TAB PO SCH (09:49)
[2017-10-05] MEDS: risperiDONE 1 MG TAB PO SCH (09:49)
[2017-10-05] MEDS: LABETALOL 100 MG TAB PO SCH (09:50)
[2017-10-05 12:00] VITALS: BP 172/90
--- NOTE | 2017-10-05 12:12 | NUR ---
Customer Account Executive Note: Late entry for 10/04/17: Per patient, she stays on and off at [facility], [address] [place] [id number]. She receives $932 from [employer] monthly and also receives food stamps. She requested assistance with room and board or snf placement. I inquired if she had any of the $932 funds available at this time, she stated she does not have any money at this time. She reported she bought clothes and food and spent all of the $932. She stated she received $932 on 09/22/17. She stated she does not have any family members she would like to include on her medical record. She reported she has a significant other, Kevin Hercules . She goes to [facility] to receive dialysis treatment. I explained to her that if she would like to go to a room and board she needed to have SSI funds available, and therefore could not go to one at this time. She verbalized understanding. She stated she has been at [facility] before and would like to be transfer there if possible upon discharge, she would like to live there (rat exterminator placement). I provided patient with "patient information and choice letter", letter filled out and signed, I included letter in patient's medical chart. Addendum: 10/05/17 at 1229 by Eli Ndiaye SS Per patient, she takes bus to get to [facility] and does not have a pcp at this time.
--- NOTE | 2017-10-05 12:21 | NUR ---
CALLED BELA AT [facility] . PHONE [phone]. SHE ASKED ABOUT WHETHER THE PATIENT COULD WAIT TIL MONDAY FOR NEXT DIALYSIS. I CALLED DEE PSYCHOLOGICAL OPERATIONS OFFICER NURSE TO CHECK WITH ADINA. DEE CALLED BACK AND SAID [facility] WAS OK WITH NEXT DIALYSIS ON MONDAY. I SPOKE WITH BELA AND SHE SAID THEY WOULD PAY FOR TRANSPORT TO FACILITY TODAY, JUST CALL [facility]. I CALLED [facility], AND SET UP W/C TRANSPORT BETWEEN 3P.M. AND 4P.M. ALSO TOLD THEM TO BILL [facility]. I CALLED YONNY KURTZ AND INFORMED HER./ I ALSO INFORMED DEE KURTZ CHARGE NURSE. I CALLED BELA AT [facility] AND INFORMED HER THAT MONDAY FOR NEXT DIALYSIS IS OKAY.
--- NOTE | 2017-10-05 12:22 | NUR ---
Zigzag Tunnel Elastic Operator Note: Per Malini from [facility] , patient has been accepted and is aware patient receives dialysis treatment at [facility] and would like oil heaterman snf placement, room number 512A, accepting physician is Malini Spangler stated patient can be transfer to their facility anytime today, case loren Erickson aware.
--- NOTE | 2017-10-05 12:27 | NUR ---
LISA FROM [employer] CALLED AND REPORTED THAT THE PT WAS ACCEPTED TO [facility]ER THE SERVICE OF DR. GROVE, IN [facility] [address]-A. ACKNOWLEDGED AND WILL INFORM PT AND FACILITATE TRANSFER PROCESS.
--- NOTE | 2017-10-05 13:13 | NUR ---
CALLED [facility] AND SPOKE TO VIKI CEJA AND GAVE REPORT REGARDING THE PT. PT WILL BE TRANSFERRED TO [facility] [address] [facility] UNDER THE SERVICE OF DR. GROVE. AND WILL BE PICKED UP BY TRANSPORT POND GAP BETWEEN 3-4PM, VIKI, MARCIAL WAS INFORMED.
--- NOTE | 2017-10-05 13:33 | NUR ---
PT IS AWAKE AND WAS GIVEN KAYEXALATE, PT WANTS TO TAKE ONLY ONE BOTTLE, 15GM AND REFUSED TO TAKE THE OTHER 15GM BOTTLE. DR. FERRIS INFORMED ABOUT IT.
[2017-10-05] MEDS ORDERED: LEVO0.0211 PO (14:14)
[2017-10-05 15:15] LABS: MAGNESIUM 2.4 mg/dL (1.8-2.4); PHOSPHORUS 5.1 mg/dL (2.5-4.9)
--- NOTE | 2017-10-05 15:20 | NUR ---
DISCHARGED PT VIA WHEELCHAIR WITH THE [facility] PERSONNEL. DISCHARGE INSTRUCTIONS GIVEN TO PT. ARM BAND AND CARE ATTENDANT REMOVED. PT IS STABLE UPON DISCHARGE.
--- NOTE | 2017-10-05 15:27 | NUR ---
10/05/17 RD FOLLOW UP COMPLETED PLEASE REFER TO NUTRITION ASSESSMENT UNDER CARE ACTIVITY FOR ESTIMATED NUTRITIONAL NEEDS. 1. CONTINUE RENAL AND CCHO 60 DIET TOLERATED. 2. RECOMMEND NEPRO QD AT SNF. 3. RD TO FOLLOW-UP 3-5 DAYS, MODERATE RISK. [place]UR[place]A YEPEZ, RD
== END 2017-10-05 15:20 | DRG 280 ==
LOC: MED 21:45 → MTU 10-02 00:26
PROVIDERS: ADMIT General Practice; ATTEND General Practice
PROC: 5A1D70Z Performance of Urinary Filtration, Intermittent, Less than 6 Hours Per Day (ICD-10-PCS; 2017-10-02)
PROC: 5A1D70Z Performance of Urinary Filtration, Intermittent, Less than 6 Hours Per Day (ICD-10-PCS; principal; 2017-10-04)
PROC: 30233N1 Transfusion of Nonautologous Red Blood Cells into Peripheral Vein, Percutaneous Approach (ICD-10-PCS; 2017-10-04)
DX: I16.1 Hypertensive emergency (principal); N17.0 Acute kidney failure with tubular necrosis; I21.A1 Myocardial infarction type 2; I50.43 Acute on chronic combined systolic (congestive) and diastolic (congestive) heart failure; N18.6 End stage renal disease; E87.1 Hypo-osmolality and hyponatremia; E44.1 Mild protein-calorie malnutrition; E78.5 Hyperlipidemia, unspecified; E83.41 Hypermagnesemia; F32.9 Major depressive disorder, single episode, unspecified; E03.9 Hypothyroidism, unspecified; E66.3 Overweight; I13.2 Hypertensive heart and chronic kidney disease with heart failure and with stage 5 chronic kidney disease, or end stage renal disease; F17.210 Nicotine dependence, cigarettes, uncomplicated; E87.5 Hyperkalemia; F41.9 Anxiety disorder, unspecified; F25.9 Schizoaffective disorder, unspecified; G47.00 Insomnia, unspecified; E83.39 Other disorders of phosphorus metabolism; F39 Unspecified mood [affective] disorder; M54.5 Low back pain; M25.561 Pain in right knee; D63.1 Anemia in chronic kidney disease; Z83.3 Family history of diabetes mellitus; Z82.3 Family history of stroke; Z82.49 Family history of ischemic heart disease and other diseases of the circulatory system; Z99.2 Dependence on renal dialysis; Z68.27 Body mass index [BMI] 27.0-27.9, adult; Z88.8 Allergy status to other drugs, medicaments and biological substances; Z79.899 Other long term (current) drug therapy; Z59.0 Homelessness; Z91.19 Patient's noncompliance with other medical treatment and regimen
CPT/HCPCS: 36415; 71045; 80048; 80053; 82150; 82550; 82553; 82607; 82728; 82746; 82948; 83540; 83605; 83690; 83735; 83880; 84100; 84439; 84443; 84484; 85025; 85045; 85610; 85730; 86886; 86900; 86901; 86920; 87040; 87081; 90935; 93005; 99285; J0885; J1644; J7030; P9016; Q0092